=== PATIENT | male | born 1955 | race Caucasian/White ===

== ENCOUNTER 2024-05-18 21:07 | Emergency (ER) | payer MEDICARE, OTHER, SELFPAY ==
[2024-05-18 21:07] VITALS: BMI 31.0
[2024-05-18 21:09] VITALS: BP 173/92
--- NOTE | 2024-05-18 22:24 | ED.GENMED ---
History of Present Illness
General
Chief Complaint: DVT/Possible Blood Clot
Source: patient
Exam Limitations: none
Time Seen by Provider: 05/18/24 22:12
History of Present Illness
History of Present Illness:
69-year-old male presents complaining of right leg swelling and pain starting about 10 days ago. He was staying temporarily in [facility] and ended up getting a heart catheterization while there. This is about 2-1/2 to 3 weeks ago. He needed
2 stents in his RCA. He was placed on a baby aspirin. Before flying back home he developed swelling in his right leg has been persistent since then. He notes the pain is slightly worse in his patel and calf. He denies chest pain or shortness of
breath. He is on a baby aspirin. He has a history of hypertension otherwise. 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
Phy Exam
Physical Exam
Physical Exam:
General: Well-appearing male no acute respiratory distress
HEENT: Normocephalic atraumatic
Heart: Regular rate and rhythm no murmurs
Lungs: Clear no wheeze
Extremities: No cyanosis pitting edema noted to the right lower extremity
Vascular: 2+ dorsalis pedis pulse right foot there is patel and calf tenderness about the right foot
Course
Orders/Labs/Results
Orders:
Orders
05/18/24 22:24
Venous Doppler Lwr Ext Rt [[facility] Venous LOWER Ext RT] Urgent
Comment:
Reason For Exam: swelling, pain
Vital Signs
Initial and Last Documented VS:
Initial Vital Signs
Temp Pulse Resp BP Pulse Ox
97.6 F 68 16 173/92 100
05/18/24 21:09 05/18/24 21:09 05/18/24 21:09 05/18/24 21:09 05/18/24 21:09
Last Documented Vital Signs
Temp Pulse Resp BP Pulse Ox
97.6 F 64 17 138/74 98
05/18/24 21:09 05/19/24 00:00 05/19/24 00:00 05/19/24 00:00 05/19/24 00:00
MDM/Problems Addressed
Differential Diagnosis Includes:
Right leg swelling and pain. Consider settling hematoma versus DVT. No significant concern of cellulitis on exam
Venous ultrasound pending. There is no chest pain or shortness breath.
*Critical Care Note
Total Time (30-74mins, 75-104mins- exclusive of procedures): Not Applicable
Update Note
Update Note:
Received call from ultrasound department. There is no DVT in the right leg on the ultrasound. Suspect swelling and discomfort may be from blood settling from hematoma from up above. No overt signs of cellulitis. Patient is afebrile. Recommended
elevation and warm compresses. Stable for discharge
ED Attending Note
-
Portions of this chart may have been created with voice recognition software.� Occasional wrong word or��sound alike� substitutions may have occurred due to the inherent limitations of voice recognition software.
Discharge Plan
Departure
Patient Disposition: Home (Routine Discharge)
Date of Disposition: 05/19/24
Time of Disposition: 01:25
Patient with high blood pressure during this ER visit?: No
Discharge Problem:
Leg pain
Instructions: Swelling
Referrals:
Gamal Vasquez DO [Family Provider] -
Activity Restrictions/Additional Instructions:
You came here for concern for possible DVT in your right leg. Ultrasound shows no evidence of DVT today. This may be from swelling from the procedure. Return here for worsening symptoms otherwise keep leg elevated and use warm compresses
Interventions
Interventions:
*General Assessment Last Done: 05/18/24 21:09
*ED COVID-19 Vaccine History Last Done: 05/18/24 21:09
ED- Cardiac Assessment Last Done: 05/19/24 00:18
ED- Pulmonary Assessment Last Done: 05/19/24 00:18
ED-Peripheral Vascular Assessment Last Done: 05/19/24 00:18
ED-Skin Assessment Last Done: 05/19/24 00:18
Discharge Date and Time
Print Language: LITHUANIAN
[2024-05-19] VITALS: BP 138/74
== END 2024-05-19 01:50 | disposition home or self-care (01) ==
LOC: EMR 21:07
PROVIDERS: EMERGENCY PHYSICIAN Emergency Medicine; FAMILY PHYSICIAN Family Medicine
DX: M79.604 Pain in right leg (principal); R22.41 Localized swelling, mass and lump, right lower limb; I10 Essential (primary) hypertension; Z79.82 Long term (current) use of aspirin
CPT/HCPCS: 99284; 93971